=== PATIENT | female | born 1945 ===

== ENCOUNTER 2024-07-30 14:10 | Inpatient (IN) | payer OTHER ==
[~2024-07-30] VITALS: Ht 152.4 cm; Wt 54.0 kg
[2024-07-30] MEDS ORDERED: TOPROL XL100 M1 PO (14:16)
[2024-07-30] MEDS ORDERED: ATORVASTATIN CA20 MG PO (14:16)
[2024-07-30] MEDS ORDERED: NORVASC5 MG PO (14:16)
[2024-07-30] MEDS ORDERED: AVAPRO300 MG PO (14:17)
[2024-07-30 14:20] VITALS: BP 125/80
[2024-07-30] MEDS ORDERED: SOLIQUA 100 UNIT3 ML (14:25)
[2024-08-11] MEDS ORDERED: METHYLPREDNISOLONE ACETATE 80 MG/ML VIAL ONE (09:38)
[2024-08-11] MEDS ORDERED: VANCOMYCIN HCL 1,000 MG VIAL ONE ×2 (09:39→19:16)
[2024-08-11] MEDS ORDERED: METHYLPREDNISOLONE SOD SUCC 125 MG VIAL ONE ×2 (09:39→17:02)
[2024-08-11] MEDS ORDERED: CEFAZOLIN SODIUM 1,000 MG VIAL ONE ×2 (09:39→17:02)
[2024-08-11] MEDS ORDERED: AMOX-CLAV 875-1 EACH PO (10:28)
[2024-08-11] MEDS ORDERED: PERCOCET 5-3251 EACH PO (10:28)
[2024-08-11] MEDS ORDERED: MEDROLPACK PO (10:28)
[2024-08-11] MEDS ORDERED: COLACE100 MG PO (10:28)
[2024-08-11] MEDS ORDERED: GABAPENTIN100 M2 PO (10:29)
[2024-08-11] MEDS ORDERED: ZOFRAN8 MG PO (10:29)
[2024-08-11] MEDS ORDERED: NEURONTIN800 MG PO (10:30)
[2024-08-11] MEDS ORDERED: PROMETHAZINE HCL 50 MG/ML AMPUL IM PRN (10:45)
[2024-08-11] MEDS ORDERED: 0.9 % SODIUM CHLORIDE 1,000 ML IV SCH (10:45)
[2024-08-11] MEDS ORDERED: ENALAPRILAT DIHYDRATE 1.25 MG/ML VIAL IV PRN (10:45)
[2024-08-11] MEDS ORDERED: METHYLPREDNISOLONE ACETATE 80 MG/ML VIAL IM ONE (12:00)
[2024-08-11] MEDS ORDERED: CEFAZOLIN SODIUM 1,000 MG VIAL IV ONE (12:00)
[2024-08-11] MEDS ORDERED: VANCOMYCIN HCL 1,000 MG VIAL IV ONE (12:00)
[2024-08-11] MEDS ORDERED: VANCOMYCIN HCL 1,000 MG VIAL SPEPROC ONE (12:00)
[2024-08-11] MEDS ORDERED: METHYLPREDNISOLONE SOD SUCC 125 MG VIAL IV ONE ×2 (12:00)
[2024-08-11] MEDS ORDERED: ACETAMINOPHEN 500 MG GEL..CAP PO SCH (12:00)
[2024-08-11] MEDS ORDERED: VANCOMYCIN HCL 1,000 MG VIAL IR ONE (12:00)
[2024-08-11] MEDS ORDERED: MORPHINE SULFATE 4 MG/ML VIAL IV ONE ×2 (12:55→13:25)
[2024-08-11] MEDS ORDERED: DOCUSATE SODIUM 100MG CAP PO SCH (13:00)
[2024-08-11] MEDS ORDERED: MORPHINE SULFATE 4 MG/ML CARTRIDGE IV SCH (13:00)
[2024-08-11] MEDS ORDERED: METHYLPREDNISOLONE SOD SUCC 125 MG VIAL IV SCH (17:00)
[2024-08-11] MEDS ORDERED: FAMOtidine 20 MG TABLET PO SCH (17:00)
[2024-08-11] MEDS ORDERED: CEFAZOLIN SODIUM 1,000 MG in 0.9 % SODIUM CHLORIDE 50 ML IV SCH (17:00)
[2024-08-11 18:28] VITALS: BP 170/72; O2SAT 94
[2024-08-11] MEDS ORDERED: GABAPENTIN 800 MG TABLET PO SCH (21:00)
[2024-08-11] MEDS ORDERED: VANCOMYCIN HCL 1,000 MG VIAL IV SCH (21:00)
[2024-08-11 21:50] VITALS: O2SAT 95
[2024-08-11 22:15] VITALS: BP 142/75; O2SAT 97
[2024-08-12] VITALS (9 sets, daily range): BP systolic 132–161; BP diastolic 68–73; O2SAT 84–97
[2024-08-12] MEDS ORDERED: SODIUM CHLORIDE 0.45 % 1,000 ML IV SCH
[2024-08-12] MEDS ORDERED: OxyCODONE HCL/APAP UD (PERCOCET) PO PRN (06:01)
[2024-08-12] MEDS ORDERED: VANCOMYCIN HCL 1,000 MG VIAL ONE ×2 (06:38→15:04)
[2024-08-12 08:00] LABS: HEMATOCRIT 30.5 % (36.0-45.00); HEMOGLOBIN 10.6 g/dL (12.0-15.00); MEAN CELL VOLUME 83.7 fL (80.00-100.00); MEAN CORPUSCULAR HGB CONC 34.6 g/dl (32.0-36.0); PLATELET COUNT 134 K/uL (150-450); RED BLOOD COUNT 3.65 M/uL (4.00-6.00); RED CELL DISTRIBUTION WIDTH 14.1 % (11.5-14.5)
[2024-08-12] MEDS ORDERED: TAMSULOSIN HCL 0.4 MG CAP PO SCH (09:00)
[2024-08-12] MEDS ORDERED: ENOXAPARIN SODIUM 40 MG/0.4 ML SYRINGE SUBCUTANEO SCH (09:00)
[2024-08-12 09:30] LABS: CALCIUM 8.2 mg/dL (8.5-10.1); CREATININE SERUM 1.34 mg/dL (0.55-1.02); GFR 38.35; POTASSIUM 5.07 mEq/L (3.5-5.1)
[2024-08-12] MEDS ORDERED: DEXTROSE 50 % IN WATER 0.5 G/ML DISP.SYRIN IV PRN (20:30)
[2024-08-12] MEDS ORDERED: INSULIN LISPRO 1,000 UNIT/10 ML UNITS SUBCUTANEO PRN (20:30)
[2024-08-13 00:52] VITALS: BP 123/66; O2SAT 98
[2024-08-13 05:48] VITALS: O2SAT 90
[2024-08-13 08:00] VITALS: BP 180/84; O2SAT 95
[2024-08-13] MEDS ORDERED: INSULIN GLARGINE,HUM.REC.ANLOG 1,000 UNITS/10 ML UNITS SUBCUTANEO SCH (08:00)
[2024-08-13 10:01] VITALS: O2SAT 98
[2024-08-13 13:00] VITALS: BP 170/65; O2SAT 96
[2024-08-13] MEDS ORDERED: SODIUM CL 0.9% 50 ML IV.SOLN IV ONE (14:48)
[2024-08-13 16:00] VITALS: BP 151/64; O2SAT 95
== END 2024-08-13 17:09 | disposition home or self-care (01) | DRG 402 ==
LOC: O/R 08-11 05:23 → SURH 08-11 10:00
PROVIDERS: ADMIT Orthopaedic Surgery Orthopaedic Surgery of the Spine; ATTEND Orthopaedic Surgery Orthopaedic Surgery of the Spine
PROC: 0SG0071 Fusion of Lumbar Vertebral Joint with Autologous Tissue Substitute, Posterior Approach, Posterior Column, Open Approach (ICD-10-PCS; 2024-08-11)
PROC: 0ST20ZZ Resection of Lumbar Vertebral Disc, Open Approach (ICD-10-PCS; 2024-08-11)
PROC: 0QB30ZZ Excision of Left Pelvic Bone, Open Approach (ICD-10-PCS; 2024-08-11)
PROC: 07DR0ZZ Extraction of Iliac Bone Marrow, Open Approach (ICD-10-PCS; 2024-08-11)
PROC: 4A1104G Monitoring of Peripheral Nervous Electrical Activity, Intraoperative, Open Approach (ICD-10-PCS; 2024-08-11)
PROC: 4A12X4Z Monitoring of Cardiac Electrical Activity, External Approach (ICD-10-PCS; 2024-08-11)
PROC: XRGB0R7 Fusion of Lumbar Vertebral Joint using Custom-Made Anatomically Designed Interbody Fusion Device, Open Approach, New Technology Group 7 (ICD-10-PCS; principal; 2024-08-11 10:00)
DX: M43.16 Spondylolisthesis, lumbar region (principal); M48.062 Spinal stenosis, lumbar region with neurogenic claudication; I10 Essential (primary) hypertension; E11.9 Type 2 diabetes mellitus without complications; Z79.4 Long term (current) use of insulin